=== PATIENT | female | born 1995 | race African-American/Black ===

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

== ENCOUNTER 2018-03-10 08:14 | Emergency (ER) | payer SELFPAY ==
[2018-03-10 08:32] VITALS: BP 128/64
[2018-03-10] MEDS ORDERED: Azithromycin TAB* 250 MG PO ONE (09:41)
[2018-03-10] MEDS ORDERED: cefTRIAXone VIAL(*) 250 MG VIAL IM ONE (09:41)
--- NOTE | 2018-03-10 09:46 | UC ---
Complaint Female HPI - HPI Summary HPI Summary: 22 year old female with no PMH, no medications who presents for evaluation for possible STD exposure. States has increased vaginal discharge with fishy odor and thicker, whiter discharge. Denies pelvic pain or fever/ chills. + watery eye x 24 hours, roommate had "pink eye" last week, no treatment. - History Of Current Complaint Chief Complaint: UCSTDScreening Stated Complaint: PERSONAL,EYE COMPLAINT Time Seen by Provider: 03/10/18 08:49 Hx Obtained From: Patient Hx Last Menstrual Period: 03/06/2018 ?: No Onset/Duration: Sudden Onset, Lasting Days Timing: Constant Severity Initially: Mild Severity Currently: None Pain Intensity: 0 Pain Scale Used: 0-10 Numeric Associated Signs And Symptoms: Positive: Vaginal Discharge - Allergies/Home Medications Allergies/Adverse Reactions: Allergies Allergy/AdvReac Type Severity Reaction Status Date / Time No Known Allergies Allergy Verified 03/10/18 08:25 PMH/Surg Hx/FS Hx/Imm Hx Previously Healthy: Yes - Surgical History Surgical History: None - Family History Known Family History: Negative: Cardiac Disease, Hypertension - Social History Alcohol Use: Occasionally Substance Use Type: Marijuana Smoking Status (MU): Never Smoked Tobacco Household Exposure Type: Cigarettes - Immunization History Most Recent Influenza Vaccination: fall 2013 Vaccination Up to Date: Yes Review of Systems Eyes: Drainage Genitourinary: Vaginal/Penile Discharge Is Patient Immunocompromised?: No All Other Systems Reviewed And Are Negative: Yes Physical Exam Triage Information Reviewed: Yes Appearance: Well-Appearing, No Pain Distress, Well-Nourished Vital Signs: Initial Vital Signs Temp 98.6 F 03/10/18 08:24 Pulse 77 03/10/18 08:24 Resp 18 03/10/18 08:24 BP 128/64 03/10/18 08:24 Pulse Ox 98 03/10/18 08:24 Vital Signs Reviewed: Yes Eyes: Positive: Conjunctiva Inflamed - nild R>L, m, Discharge - minimal clear, watery ENT: Positive: Pharynx normal, TMs normal, Uvula midline. Negative: Sinus tenderness Neck: Positive: Supple, Nontender, No Lymphadenopathy Abdomen Description: Negative: CVA Tenderness (R), CVA Tenderness (L) Pelvic Exam: Positive: External Exam Normal, Speculum Exam Normal, No Cerv. Motion Tender, No Masses. Negative: Active Bleeding, Blood, Cervicitis, Discharge, Tender w/ Cervical Motion, Tender Adnexa, Tender Uterus Neurological Exam: Normal Psychological Exam: Normal Complaint Female Dx - Course Course Of Treatment: STD cultures obtained, sent off, patient treated for STD testing as partner si beleieved to be + for brittany. Patient given abx eye drops for probably conjunctivitis, work note given. [facility], no sexula contact - Differential Dx/Diagnosis Differential Diagnosis/HQI/PQRI: Endometriosis, Pelvic Inflammatory Disease, Urinary Tract Infection Provider Diagnoses: STD exposure , conjunctivitis R Discharge - Sign-Out/Discharge Documenting (check all that apply): Patient Departure All imaging exams completed and their final reports reviewed: No Studies - Discharge Plan Condition: Good Disposition: HOME Prescriptions: Ciprofloxacin 0.3% OPTH.CLEO* [Cipro 0.3% Opth*] 1 drop BOTH EYES Q2H #1 btl Patient Education Materials: Chlamydia (ED), Sexually Transmitted Diseases (ED) , Conjunctivitis (ED) Forms: *Work Release Referrals: Tucker Sheffield MD [Primary Care Provider] - Additional Instructions: - [facility] exam - Go to ER with increased symptoms, pelvic pain, fever - Do not have sexual intercourse until results return for STD testing - Conjunctivitis- strict hand washing, wash sheet nightly, no contact with others without gloves, strict hygiene - Billing Disposition and Condition Condition: GOOD Disposition: Home
[2018-03-10] MEDS ORDERED: Lidocaine 1%* 5 ML VIAL ONE (09:49)
== END 2018-03-10 10:10 | disposition home or self-care (01) ==
LOC: UCEAST 08:14
DX: N89.8 Other specified noninflammatory disorders of vagina (principal); Z20.2 Contact with and (suspected) exposure to infections with a predominantly sexual mode of transmission; H10.31 Unspecified acute conjunctivitis, right eye
CPT/HCPCS: 84702; 87480; 87491; 87510; 87591; 87661; 96372; 99212; A9270-GY; G0463; J0696